=== PATIENT | female | born 1995 | race Caucasian/White ===

== ENCOUNTER 2022-07-14 16:06 | Emergency (ER) | payer SELFPAY ==
[~2022-07-14] VITALS: Ht 160 cm; Wt 88.6 kg
[2022-07-14 16:24] VITALS: TEMP 98
[2022-07-14 18:13] LABS: COLLECTION METHOD CLEAN CATCH
[2022-07-14 18:18] LABS: BASO % 0.4 % (0.0-2.0); EOS # 0.2 K/mm3 (0.0-0.7); EOS % 1.7 % (0.0-4.0); GRAN # 7.7 K/mm3 (1.4-6.5); GRAN % 74.2 % (42.2-75.2); HEMATOCRIT 42.9 % (37.0-47.0); LYMPH % 19.4 % (20.0-51.0); MEAN CELL VOLUME 92 fl (80.0-100.0); MEAN CORPUSCULAR HEMOGLOBIN 30 pg (27-31); MEAN CORPUSCULAR HGB CONC 33 g/dl (33.0-37.0); MEAN PLATELET VOLUME 9.5 fl (7.4-10.4); MONO # 0.4 K/mm3 (0.1-0.6); MONO % 3.6 % (1.7-9.3); PLATELET COUNT 350 K/mm3 (130-400); RED BLOOD COUNT 4.69 M/mm3 (4.10-5.30); REDCELL DISTRIBUTION WIDTH-CV 12.7 % (11.5-14.5)
[2022-07-14 18:32] LABS: URINE APPEARANCE Clear (CLEAR/HAZY); URINE BLOOD 2+ (NEGATIVE); URINE COLOR Yellow (YELLOW); URINE GLUCOSE Negative (NEGATIVE); URINE KETONE Negative (NEGATIVE); URINE NITRATE Negative (NEGATIVE); URINE PROTEIN(semi-quant) Negative (NEGATIVE); URINE UROBILINOGEN 0.2 E.U/dL (0.2-1.0)
[2022-07-14 18:33] LABS: BILIRUBIN,TOTAL 0.2 mg/dL (0.2-1.2); CALCIUM 9.4 mg/dL (8.4-10.2); CREATININE, serum 0.74 mg/dL (0.57-1.11); POTASSIUM 3.8 mmol/L (3.5-4.5); TOTAL PROTEIN 7.4 gm/dL (6.2-8.1)
[2022-07-14 19:54] LABS: MUCOUS Present (NOT PRESENT); URINE BACTERIA Rare /hpf (NONE SEEN)
[2022-07-14 20:03] VITALS: BP 127/77; PULSE 99
== END 2022-07-14 20:14 | disposition home or self-care (01) ==
LOC: COL.ER 16:06
PROVIDERS: Nurse Practitioner Primary Care
DX: R10.30 Lower abdominal pain, unspecified (principal); Z32.02 Encounter for pregnancy test, result negative
CPT/HCPCS: J1200; J1885; J2405; J7030; Q9967

== ENCOUNTER 2023-02-08 15:00 | Outpatient (RCR) | payer BC | END 2023-02-19 | disposition home or self-care (01) | LOC: WSPT | DX: M76.821 Posterior tibial tendinitis, right leg (principal); M76.71 Peroneal tendinitis, right leg; M77.9 Enthesopathy, unspecified ==